=== PATIENT | male | born 1970 | race American Indian/Alaskan Native ===

== ENCOUNTER 2019-12-07 10:10 | Inpatient (IN) | payer BC, OTHER ==
[2019-12-07] MEDS ORDERED: Sodium Chloride 0.9% 10 ML Syringe FLUSH PRN (10:31)
[2019-12-07] MEDS ORDERED: Sodium Chloride 0.9% 2.5 ML Syringe FLUSH PRN (10:31)
[2019-12-07] MEDS ORDERED: Sodium Chloride 0.9% 10 ML SDV IV PRN (10:31)
--- NOTE | 2019-12-07 10:46 | CT ---
INDICATION: Right-sided facial droop. TECHNIQUE: CT head without contrast. COMPARISON: None. FINDINGS: CSF spaces: Within normal limits for age. Brain parenchyma and extra-axial spaces: A 9 mm lacunar infarct is in the right basal ganglia, this has a chronic appearance. No other signs of ischemia. No hemorrhage or mass effect. Chang-white matter distinction is intact. Skull base and calvarium: The visualized paranasal sinuses and mastoid air cells demonstrate no acute or significant findings. The visualized orbits are grossly unremarkable. No skull fractures. IMPRESSION: Solitary chronic appearing lacunar infarct in the right basal ganglia. No convincing evidence for acute ischemia or other significant finding. Please note that all CT scans at this facility use dose modulation, iterative reconstruction, and/or weight-based dosing when appropriate to reduce radiation dose to as low as reasonably achievable. Dictated by Alfredo Sutton MD @ Dec 07 2019 10:41AM Signed by Dr. Alfredo Sutton @ Dec 07 2019 10:45AM
--- NOTE | 2019-12-07 11:17 | CR ---
Chest: Frontal view of the chest is obtained utilizing portable technique. Heart size and mediastinum are normal. Scoliosis is noted within the spine. Lungs are clear with no acute parenchymal change. Impression: 1. Findings as noted above. 2. Nothing acute is appreciated on portable chest x-ray. Diagnostic code #1 This report was dictated in [place] Standard Time
[2019-12-07 11:41] LABS: BLOOD UREA NITROGEN,BUN 5 mg/dL (7.0-18.0); CARBON DIOXIDE,CO2 25.9 mmol/L (21.0-32.0); CHLORIDE,CL 102 mmol/L (98-107); GLUCOSE RANDOM 129 mg/dL (74-106); POTASSIUM,K 3.9 mmol/L (3.5-5.1); SODIUM,NA 138 mmol/L (136-148)
--- NOTE | 2019-12-07 12:49 | PCM.HP.2 ---
<HaneyLluviakeiry - Last Filed: 12/07/19 13:03> H&P History of Present Illness - General Admit Problem/Dx: Admission Diagnosis/Problem Admission Diagnosis/Problem Stroke of unknown etiology Source of Information: Patient History Limitations: Reports: No Limitations - History of Present Illness Initial Comments - Free Text/Narative: Patient is a 49-year-old male presenting with strokelike symptoms. Onset of symptoms was 8:30 AM yesterday. Patient states he had acute onset of right- sided facial weakness and difficulty speaking. Patient states his tongue feels swollen and fat. In addition, site patient states his right side of his face feels numb. Patient has no difficulty closing his eyes. Patient denies any headache. Patient denies any other neurologic complaints. Patient has no prior history of stroke. She states he did not come in yesterday because he does not like doctors. Pmhx: None Pshx: None Family Hx: noncontributory Smoking history? Yes Etoh use? none Drug use? none In addition to that documented in the HPI above, the additional ROS was obtained : Constitutional: Denies fevers or chills Eyes: Denies vision changes ENMT: Denies sore throat CV: Denies chest pain Resp: Denies SOB GI: Denies vomiting or diarrhea : Denies painful urination MSK: Denies recent trauma Skin: Denies new rashes Neuro: Denies new numbness or tingling or weakness Endocrine: Denies unexpected weight loss Heme: Denies bleeding disorders I have reviewed the triage vital signs Const: Well nourished, well developed, appears stated age Eyes: PERRL, no conjunctival injection HENT: NCAT, Neck supple without meningismus CV: RRR, Warm, well-perfused extremities RESP: CTAB, Unlabored respiratory effort GI: soft, non-tender, non-distended, no masses MSK: No gross deformities appreciated Skin: Warm, dry. No rashes Neuro: Patient is awake and alert and oriented x3. Patient demonstrates right- sided facial droop with forehead sparing. Patient is able to close both eyes. Patient does demonstrate some dysarthric speech. Patient's upper and lower extremities are both 5 out of 5 in strength. Patient walks with normal gait. Patient has normal [id number] testing. Psych: Appropriate mood and affect Assessment and plan: Patient is a 49-year-old male with strokelike symptoms. Differential diagnosis considered was ischemic stroke versus intracranial hemorrhage versus Teague's palsy. However given the findings of his neurologic exam and negative brain CT it seems like ischemic stroke is most likely. Patient is not a TPA candidate given his delayed presentation to the emergency room. Patient is not a candidate for neuro intervention either as he does not have any large vessel occlusion that would necessitate intervention. Patient will require admission to the hospital for further stroke work-up including MRI/MRA of the head and neck. Discussed with Dr. Wheeler who agreed to accept the patient for admission. - Related Data Allergies/Adverse Reactions: Allergies Allergy/AdvReac Type Severity Reaction Status Date / Time No Known Allergies Allergy Verified 12/07/19 10:19 Home Medications: Home Meds . [No Known Home Meds] 12/07/19 [History] H&P Review of Systems - Review of Systems: Review Of Systems: See Below Exam - Exam Exam: See Below - Vital Signs Vital Signs: Last Vital Signs Temp 35.7 C L 12/07/19 10:17 Pulse 82 12/07/19 11:26 Resp 16 12/07/19 11:26 BP 146/98 H 12/07/19 11:26 Pulse Ox 96 12/07/19 11:26 - Patient Data Lab Results Last 24 hrs: Laboratory Results - last 24 hr 12/07/19 12/07/19 12/07/19 Range/Units 10:45 10:45 10:45 WBC 9.54 (4.0-11.0) K/uL RBC 5.19 (4.50-5.90) M/uL Hgb 18.2 H (13.0-17.0) g/dL Hct 50.7 H (38.0-50.0) % MCV 97.7 (80.0-98.0) fL MCH 35.1 H (27.0-32.0) pg MCHC 35.9 (31.0-37.0) g/dL RDW Std Deviation 47.2 (28.0-62.0) fl RDW Coeff of Alfred 13 (11.0-15.0) % Plt Count 232 (150-400) K/uL MPV 10.80 (7.40-12.00) fL Neut % (Auto) 69.0 (48.0-80.0) % Lymph % (Auto) 21.0 (16.0-40.0) % [place] % (Auto) 6.5 (0.0-15.0) % Eos % (Auto) 3.0 (0.0-7.0) % Baso % (Auto) 0.5 (0.0-1.5) % Neut # (Auto) 6.6 H (1.4-5.7) K/uL Lymph # (Auto) 2.0 (0.6-2.4) K/uL [place] # (Auto) 0.6 (0.0-0.8) K/uL Eos # (Auto) 0.3 (0.0-0.7) K/uL Baso # (Auto) 0.1 (0.0-0.1) K/uL Nucleated RBC % 0.0 /100WBC Nucleated RBCs # 0 K/uL INR 1.12 APTT 28.1 (18.6-31.3) SEC Sodium 138 (136-148) mmol/L Potassium 3.9 (3.5-5.1) mmol/L Chloride 102 (98-107) mmol/L Carbon Dioxide 25.9 (21.0-32.0) mmol/L BUN 5 L (7.0-18.0) mg/dL Creatinine 1.0 (0.8-1.3) mg/dL Est Cr Clr Drug Dosing 88.35 mL/min Estimated GFR (MDRD) > 60.0 ml/min Glucose 129 H (74-106) mg/dL Calcium 9.0 (8.5-10.1) mg/dL Total Bilirubin 1.1 H (0.2-1.0) mg/dL AST 21 (15-37) IU/L ALT 20 (14-63) IU/L Alkaline Phosphatase 72 (46-116) U/L Troponin I < 0.050 (0.000-0.056) ng/mL Total Protein 7.4 (6.4-8.2) g/dL Albumin 3.4 (3.4-5.0) g/dL Globulin 4.0 (2.6-4.0) g/dL Albumin/Globulin Ratio 0.9 (0.9-1.6) TSH 3rd Generation 1.61 (0.36-3.74) uIU/mL Result Diagrams: 12/07/19 10:45 12/07/19 10:45 Sepsis Event Note - Focused Exam Vital Signs: Vital Signs Temp Pulse Resp BP Pulse Ox 12/07/19 11:26 82 16 146/98 H 96 12/07/19 10:30 102 H 18 164/103 H 96 12/07/19 10:17 35.7 C L 126 H 20 184/107 H 96 Date Exam was Performed: 12/07/19 Time Exam was Performed: 13:03 *Q Meaningful Use (ADM) - VTE *Q VTE Criteria *Q: ER note. Please see internal medicine note for VTE considerations. Problem List Initiated/Reviewed/Updated: Yes Orders Last 24hrs: Active Orders 24 hr Category Date Time Status Admission Status [Patient Status] [ADT] Stat ADT 12/07/19 12:37 Active Assess Neurological Status [RC] ASDIRECTED Care 12/07/19 10:31 Active Bedrest [RC] ASDIRECTED Care 12/07/19 10:31 Active Blood Glucose Check, Bedside [RC] ONETIME Care 12/07/19 10:31 Active Cardiac Monitoring [RC] . DIRECTED Care 12/07/19 10:31 Active EKG Documentation Completion [RC] STAT Care 12/07/19 10:31 Active Height and Weight [RC] UPON Care 12/07/19 10:31 Active Initiate Acute Stroke Protocol [RC] STAT Care 12/07/19 10:31 Active NIH Stroke Scale [RC] ASDIRECTED Care 12/07/19 10:31 Active Nursing Bedside Swallow Screen [RC] ASDIRECTED Care 12/07/19 10:31 Active Oxygen Therapy [RC] ASDIRECTED Care 12/07/19 10:31 Active Stroke Education, General [RC] Click to Edit Care 12/07/19 10:31 Active Vital Signs [RC] Q15M Care 12/07/19 10:31 Active UA RFX GEORGE AND CULT IF INDIC [URIN] Stat Lab 12/07/19 10:31 Ordered Sodium Chloride 0.9% [Normal Saline] Med 12/07/19 10:31 Active 10 ml IV ASDIRECTED PRN Sodium Chloride 0.9% [Saline Flush] Med 12/07/19 10:31 Active 10 ml FLUSH ASDIRECTED PRN Sodium Chloride 0.9% [Saline Flush] Med 12/07/19 10:31 Active 2.5 ml FLUSH ASDIRECTED PRN Peripheral IV Insertion Adult [OM.PC] Stat Oth 12/07/19 10:31 Ordered Peripheral IV Insertion Adult [OM.PC] Stat Ot 12/07/19 10:31 Ordered Medication Orders Sodium Chloride (Saline Flush) 10 ml FLUSH ASDIRECTED PRN PRN Reason: Keep Vein Open Sodium Chloride (Saline Flush) 2.5 ml FLUSH ASDIRECTED PRN PRN Reason: Keep Vein Open Sodium Chloride (Normal Saline) 10 ml IV ASDIRECTED PRN PRN Reason: IV Use <Tatum De La Cruz M - Last Filed: 12/07/19 13:41> H&P History of Present Illness - General Date of Service: 12/07/19 Admit Problem/Dx: Admission Diagnosis/Problem Admission Diagnosis/Problem Stroke of unknown etiology Source of Information: Patient History Limitations: Reports: No Limitations - History of Present Illness Initial Comments - Free Text/Narative: ED NOTE INADVERTENTLY ADDED, DISREGARD. SEE NEW H/P Past Medical History - Past Health History Medical/Surgical History: Denies Medical/Surgical History - Past Surgical History Musculoskeletal Surgical History: Reports: Other (See Below) Other Musculoskeletal Surgeries/Procedures:: Back Surgery Social & Family History - Family History Family Medical History: Unobtainable - Tobacco Use Smoking Status *Q: Current Every Day Smoker Years of Tobacco use: 30 Packs/Tins Daily: 3 - Alcohol Use Days Per Week of Alcohol Use: 7 Number of Drinks Per Day: 12 Total Drinks Per Week: 84 - Recreational Drug Use Recreational Drug Use: No Exam - Vital Signs Vital Signs: Last Vital Signs Temp 96.3 F L 12/07/19 10:17 Pulse 82 12/07/19 11:26 Resp 16 12/07/19 11:26 BP 146/98 H 12/07/19 11:26 Pulse Ox 96 12/07/19 11:26 Weight: 75.8 kg - Patient Data Lab Results Last 24 hrs: Laboratory Results - last 24 hr 12/07/19 12/07/19 12/07/19 Range/Units 10:45 10:45 10:45 WBC 9.54 (4.0-11.0) K/uL RBC 5.19 (4.50-5.90) M/uL Hgb 18.2 H (13.0-17.0) g/dL Hct 50.7 H (38.0-50.0) % MCV 97.7 (80.0-98.0) fL MCH 35.1 H (27.0-32.0) pg MCHC 35.9 (31.0-37.0) g/dL RDW Std Deviation 47.2 (28.0-62.0) fl RDW Coeff of Alfred 13 (11.0-15.0) % Plt Count 232 (150-400) K/uL MPV 10.80 (7.40-12.00) fL Neut % (Auto) 69.0 (48.0-80.0) % Lymph % (Auto) 21.0 (16.0-40.0) % [place] % (Auto) 6.5 (0.0-15.0) % Eos % (Auto) 3.0 (0.0-7.0) % Baso % (Auto) 0.5 (0.0-1.5) % Neut # (Auto) 6.6 H (1.4-5.7) K/uL Lymph # (Auto) 2.0 (0.6-2.4) K/uL [place] # (Auto) 0.6 (0.0-0.8) K/uL Eos # (Auto) 0.3 (0.0-0.7) K/uL Baso # (Auto) 0.1 (0.0-0.1) K/uL Nucleated RBC % 0.0 /100WBC Nucleated RBCs # 0 K/uL INR 1.12 APTT 28.1 (18.6-31.3) SEC Sodium 138 (136-148) mmol/L Potassium 3.9 (3.5-5.1) mmol/L Chloride 102 (98-107) mmol/L Carbon Dioxide 25.9 (21.0-32.0) mmol/L BUN 5 L (7.0-18.0) mg/dL Creatinine 1.0 (0.8-1.3) mg/dL Est Cr Clr Drug Dosing 88.35 mL/min Estimated GFR (MDRD) > 60.0 ml/min Glucose 129 H (74-106) mg/dL Calcium 9.0 (8.5-10.1) mg/dL Total Bilirubin 1.1 H (0.2-1.0) mg/dL AST 21 (15-37) IU/L ALT 20 (14-63) IU/L Alkaline Phosphatase 72 (46-116) U/L Troponin I < 0.050 (0.000-0.056) ng/mL Total Protein 7.4 (6.4-8.2) g/dL Albumin 3.4 (3.4-5.0) g/dL Globulin 4.0 (2.6-4.0) g/dL Albumin/Globulin Ratio 0.9 (0.9-1.6) TSH 3rd Generation 1.61 (0.36-3.74) uIU/mL Result Diagrams: 12/07/19 10:45 12/07/19 10:45 Sepsis Event Note - Evaluation Sepsis Screening Result: No Definite Risk - Focused Exam Vital Signs: Vital Signs Temp Pulse Resp BP Pulse Ox 12/07/19 11:26 82 16 146/98 H 96 12/07/19 10:30 102 H 18 164/103 H 96 12/07/19 10:17 96.3 F L 126 H 20 184/107 H 96 Date Exam was Performed: 12/07/19 Time Exam was Performed: 13:41 Orders Last 24hrs: Active Orders 24 hr Category Date Time Status Admission Status [Patient Status] [ADT] Stat ADT 12/07/19 12:37 Active Assess Neurological Status [RC] ASDIRECTED Care 12/07/19 10:31 Active Bedrest [RC] ASDIRECTED Care 12/07/19 10:31 Active Blood Glucose Check, Bedside [RC] ONETIME Care 12/07/19 10:31 Active Cardiac Monitoring [RC] . DIRECTED Care 12/07/19 10:31 Active EKG Documentation Completion [RC] STAT Care 12/07/19 10:31 Active Height and Weight [RC] UPON Care 12/07/19 10:31 Active Initiate Acute Stroke Protocol [RC] STAT Care 12/07/19 10:31 Active NIH Stroke Scale [RC] ASDIRECTED Care 12/07/19 10:31 Active Nursing Bedside Swallow Screen [RC] ASDIRECTED Care 12/07/19 10:31 Active Oxygen Therapy [RC] ASDIRECTED Care 12/07/19 10:31 Active Stroke Education, General [RC] Click to Edit Care 12/07/19 10:31 Active Vital Signs [RC] Q15M Care 12/07/19 10:31 Active UA RFX GEORGE AND CULT IF INDIC [URIN] Stat Lab 12/07/19 10:31 Ordered Sodium Chloride 0.9% [Normal Saline] Med 12/07/19 10:31 Active 10 ml IV ASDIRECTED PRN Sodium Chloride 0.9% [Saline Flush] Med 12/07/19 10:31 Active 10 ml FLUSH ASDIRECTED PRN Sodium Chloride 0.9% [Saline Flush] Med 12/07/19 10:31 Active 2.5 ml FLUSH ASDIRECTED PRN Peripheral IV Insertion Adult [OM.PC] Stat Oth 12/07/19 10:31 Ordered Peripheral IV Insertion Adult [OM.PC] Stat Oth 12/07/19 10:31 Ordered Medication Orders Sodium Chloride (Saline Flush) 10 ml FLUSH ASDIRECTED PRN PRN Reason: Keep Vein Open Sodium Chloride (Saline Flush) 2.5 ml FLUSH ASDIRECTED PRN PRN Reason: Keep Vein Open Sodium Chloride (Normal Saline) 10 ml IV ASDIRECTED PRN PRN Reason: IV Use
[2019-12-07] MEDS ORDERED: Acetaminophen 325 MG Tab PO PRN (13:26)
[2019-12-07] MEDS ORDERED: Albuterol 0.083% 2.5 MG/3 ML Neb Soln NEB PRN (13:26)
[2019-12-07] MEDS ORDERED: Ondansetron 4 MG/2 ML SDV IVPUSH PRN (13:26)
[2019-12-07] MEDS ORDERED: Enoxaparin 40 MG/0.4 ML Syringe SUBCUT SCH (13:30)
[2019-12-07] MEDS ORDERED: Aspirin 325 MG Tab.EC PO ONE (13:31)
[2019-12-07] MEDS ORDERED: LORazepam 1 MG Tab PO PRN (13:32)
[2019-12-07] MEDS ORDERED: LORazepam 2 MG/ML SDV IVPUSH PRN (13:32)
--- NOTE | 2019-12-07 13:38 | EDM.PDOC ---
ED [facility] GENERAL MEDICAL PROBLEM - General Chief Complaint: Neuro Symptoms/Deficits Stated Complaint: STROKE CODE Time Seen by Provider: 12/07/19 11:00 Source of Information: Reports: Patient History Limitations: Reports: No Limitations - History of Present Illness INITIAL COMMENTS - FREE TEXT/NARRATIVE: Patient is a 49-year-old male presenting with strokelike symptoms. Onset of symptoms was 8:30 AM yesterday. Patient states he had acute onset of right- sided facial weakness and difficulty speaking. Patient states his tongue feels swollen and fat. In addition, site patient states his right side of his face feels numb. Patient has no difficulty closing his eyes. Patient denies any headache. Patient denies any other neurologic complaints. Patient has no prior history of stroke. She states he did not come in yesterday because he does not like doctors. Pmhx: None Pshx: None Family Hx: noncontributory Smoking history? Yes Etoh use? none Drug use? none In addition to that documented in the HPI above, the additional ROS was obtained : Constitutional: Denies fevers or chills Eyes: Denies vision changes ENMT: Denies sore throat CV: Denies chest pain Resp: Denies SOB GI: Denies vomiting or diarrhea : Denies painful urination MSK: Denies recent trauma Skin: Denies new rashes Neuro: Denies new numbness or tingling or weakness Endocrine: Denies unexpected weight loss Heme: Denies bleeding disorders I have reviewed the triage vital signs Const: Well nourished, well developed, appears stated age Eyes: PERRL, no conjunctival injection HENT: NCAT, Neck supple without meningismus CV: RRR, Warm, well-perfused extremities RESP: CTAB, Unlabored respiratory effort GI: soft, non-tender, non-distended, no masses MSK: No gross deformities appreciated Skin: Warm, dry. No rashes Neuro: Patient is awake and alert and oriented x3. Patient demonstrates right- sided facial droop with forehead sparing. Patient is able to close both eyes. Patient does demonstrate some dysarthric speech. Patient's upper and lower extremities are both 5 out of 5 in strength. Patient walks with normal gait. Patient has normal hlhllj-smey-wadmck testing. Psych: Appropriate mood and affect Assessment and plan: Patient is a 49-year-old male with strokelike symptoms. Differential diagnosis considered was ischemic stroke versus intracranial hemorrhage versus Teague's palsy. However given the findings of his neurologic exam and negative brain CT it seems like ischemic stroke is most likely. Patient is not a TPA candidate given his delayed presentation to the emergency room. Patient is not a candidate for neuro intervention either as he does not have any large vessel occlusion that would necessitate intervention. Patient will require admission to the hospital for further stroke work-up including MRI/MRA of the head and neck. Discussed with Dr. Wheeler who agreed to accept the patient for admission. - Related Data Allergies Allergy/AdvReac Type Severity Reaction Status Date / Time No Known Allergies Allergy Verified 12/07/19 10:19 Home Meds: Home Meds . [No Known Home Meds] 12/07/19 [History] Past Medical History - Past Health History Medical/Surgical History: Denies Medical/Surgical History - Past Surgical History Musculoskeletal Surgical History: Reports: Other (See Below) Other Musculoskeletal Surgeries/Procedures:: Back Surgery Social & Family History - Family History Family Medical History: Unobtainable - Tobacco Use Smoking Status *Q: Current Every Day Smoker Years of Tobacco use: 30 Packs/Tins Daily: 3 - Alcohol Use Days Per Week of Alcohol Use: 7 Number of Drinks Per Day: 12 Total Drinks Per Week: 84 - Recreational Drug Use Recreational Drug Use: No ED ROS GENERAL - Review of Systems Review Of Systems: See Below ED EXAM, NEURO - Physical Exam Exam: See Below *Q Meaningful Use (ADM) - VTE *Q VTE Criteria *Q: ER note Course - Vital Signs Last Recorded V/S: Last Vital Signs Temp 35.7 C L 12/07/19 10:17 Pulse 82 12/07/19 11:26 Resp 16 12/07/19 11:26 BP 146/98 H 12/07/19 11:26 Pulse Ox 96 12/07/19 11:26 - Orders/Labs/Meds Orders: Active Orders 24 hr Category Date Time Status Assess Neurological Status [RC] ASDIRECTED Care 12/07/19 10:31 Active Cardiac Monitoring [RC] . DIRECTED Care 12/07/19 10:31 Inactive EKG Documentation Completion [RC] STAT Care 12/07/19 10:31 Active Initiate Acute Stroke Protocol [RC] STAT Care 12/07/19 10:31 Active NIH Stroke Scale [RC] Q4H Care 12/07/19 13:30 Active Nursing Bedside Swallow Screen [RC] ASDIRECTED Care 12/07/19 10:31 Active Oxygen Therapy [RC] ASDIRECTED Care 12/07/19 10:31 Inactive Stroke Education, General [RC] Click to Edit Care 12/07/19 10:31 Active UA RFX GEORGE AND CULT IF INDIC [URIN] Stat Lab 12/07/19 10:31 Ordered Sodium Chloride 0.9% [Normal Saline] Med 12/07/19 10:31 Active 10 ml IV ASDIRECTED PRN Sodium Chloride 0.9% [Saline Flush] Med 12/07/19 10:31 Active 10 ml FLUSH ASDIRECTED PRN Sodium Chloride 0.9% [Saline Flush] Med 12/07/19 10:31 Active 2.5 ml FLUSH ASDIRECTED PRN Peripheral IV Insertion Adult [OM.PC] Stat Oth 12/07/19 10:31 Ordered Medication Orders Acetaminophen (Tylenol) 650 mg PO Q4H PRN PRN Reason: Pain (mild 1-3) Albuterol (Proventil Neb Soln) 2.5 mg NEB Q2H PRN PRN Reason: Shortness Of Breath/wheezing Aspirin (Aspirin) 81 mg PO DAILY [facility] Atorvastatin Calcium (Lipitor) 80 mg PO BEDTIME [facility] Enoxaparin Sodium (Lovenox) 40 mg SUBCUT Q24H [facility]IS Folic Acid (Folic Acid) 1 mg PO BEDTIME [facility] Lorazepam (Ativan) 0 mg PO Q4H PRN; Protocol PRN Reason: CIWAA Lorazepam (Ativan) 0 mg IVPUSH Q4H PRN; Protocol PRN Reason: CIWAA Ondansetron HCl (Zofran) 4 mg IVPUSH Q4H PRN PRN Reason: Nausea Sodium Chloride (Saline Flush) 10 ml FLUSH ASDIRECTED PRN PRN Reason: Keep Vein Open Sodium Chloride (Saline Flush) 2.5 ml FLUSH ASDIRECTED PRN PRN Reason: Keep Vein Open Sodium Chloride (Normal Saline) 10 ml IV ASDIRECTED PRN PRN Reason: IV Use Thiamine HCl (Vitamin B-1) 100 mg PO BEDTIME [facility] Labs: Laboratory Tests 12/07/19 12/07/19 12/07/19 Range/Units 10:45 10:45 10:45 WBC 9.54 (4.0-11.0) K/uL RBC 5.19 (4.50-5.90) M/uL Hgb 18.2 H (13.0-17.0) g/dL Hct 50.7 H (38.0-50.0) % MCV 97.7 (80.0-98.0) fL MCH 35.1 H (27.0-32.0) pg MCHC 35.9 (31.0-37.0) g/dL RDW Std Deviation 47.2 (28.0-62.0) fl RDW Coeff of Alfred 13 (11.0-15.0) % Plt Count 232 (150-400) K/uL MPV 10.80 (7.40-12.00) fL Neut % (Auto) 69.0 (48.0-80.0) % Lymph % (Auto) 21.0 (16.0-40.0) % [place] % (Auto) 6.5 (0.0-15.0) % Eos % (Auto) 3.0 (0.0-7.0) % Baso % (Auto) 0.5 (0.0-1.5) % Neut # (Auto) 6.6 H (1.4-5.7) K/uL Lymph # (Auto) 2.0 (0.6-2.4) K/uL [place] # (Auto) 0.6 (0.0-0.8) K/uL Eos # (Auto) 0.3 (0.0-0.7) K/uL Baso # (Auto) 0.1 (0.0-0.1) K/uL Nucleated RBC % 0.0 /100WBC Nucleated RBCs # 0 K/uL INR 1.12 APTT 28.1 (18.6-31.3) SEC Sodium 138 (136-148) mmol/L Potassium 3.9 (3.5-5.1) mmol/L Chloride 102 (98-107) mmol/L Carbon Dioxide 25.9 (21.0-32.0) mmol/L BUN 5 L (7.0-18.0) mg/dL Creatinine 1.0 (0.8-1.3) mg/dL Est Cr Clr Drug Dosing 88.35 mL/min Estimated GFR (MDRD) > 60.0 ml/min Glucose 129 H (74-106) mg/dL Calcium 9.0 (8.5-10.1) mg/dL Total Bilirubin 1.1 H (0.2-1.0) mg/dL AST 21 (15-37) IU/L ALT 20 (14-63) IU/L Alkaline Phosphatase 72 (46-116) U/L Troponin I < 0.050 (0.000-0.056) ng/mL Total Protein 7.4 (6.4-8.2) g/dL Albumin 3.4 (3.4-5.0) g/dL Globulin 4.0 (2.6-4.0) g/dL Albumin/Globulin Ratio 0.9 (0.9-1.6) TSH 3rd Generation 1.61 (0.36-3.74) uIU/mL Meds: Medications Generic Name Dose Route Start Last Admin Trade Name Freq PRN Reason Stop Dose Admin Acetaminophen 650 mg 12/07/19 13:26 Tylenol PO Q4H PRN Pain (mild 1-3) Albuterol 2.5 mg 12/07/19 13:26 Proventil Neb Soln NEB Q2H PRN Shortness Of Breath/wheezing Aspirin 81 mg 12/08/19 09:00 Aspirin PO DAILY [facility] Atorvastatin Calcium 80 mg 12/07/19 21:00 Lipitor PO BEDTIME [facility] Enoxaparin Sodium 40 mg 12/07/19 13:30 Lovenox SUBCUT Q24H [facility] Folic Acid 1 mg 12/07/19 21:00 Folic Acid PO BEDTIME [facility] Lorazepam 0 mg 12/07/19 13:32 Ativan PO Q4H PRN CIWAA Protocol Lorazepam 0 mg 12/07/19 13:32 Ativan IVPUSH Q4H PRN CIWAA Protocol Ondansetron HCl 4 mg 12/07/19 13:26 Zofran IVPUSH Q4H PRN Nausea Sodium Chloride 10 ml 12/07/19 10:31 Saline Flush FLUSH ASDIRECTED PRN Keep Vein Open Sodium Chloride 2.5 ml 12/07/19 10:31 Saline Flush FLUSH ASDIRECTED PRN Keep Vein Open Sodium Chloride 10 ml 12/07/19 10:31 Normal Saline IV ASDIRECTED PRN IV Use Thiamine HCl 100 mg 12/07/19 21:00 Vitamin B-1 PO BEDTIME [facility] Discontinued Medications Generic Name Dose Route Start Last Admin Trade Name Freq PRN Reason Stop Dose Admin Aspirin 325 mg 12/07/19 13:31 Ecotrin PO 12/07/19 13:32 ONETIME ONE Departure - Departure Time of Disposition: 12:00 Disposition: Admitted As Inpatient 68 Clinical Impression: Cerebrovascular accident (CVA) - Discharge Information Sepsis Event Note - Evaluation Sepsis Screening Result: No Definite Risk - Focused Exam Vital Signs: Vital Signs Temp Pulse Resp BP Pulse Ox 12/07/19 11:26 82 16 146/98 H 96 12/07/19 10:30 102 H 18 164/103 H 96 12/07/19 10:17 35.7 C L 126 H 20 184/107 H 96 Date Exam was Performed: 12/07/19 Time Exam was Performed: 13:39
--- NOTE | 2019-12-07 13:49 | PCM.HP.2 ---
Addendum entered and electronically signed by Tatum De La Cruz NP 12/07/19 14:28 : He reports he saw chiropractor 1 week ago and had cervical adjustment at that time. Original Note: H&P History of Present Illness - General Date of Service: 12/07/19 Admit Problem/Dx: Admission Diagnosis/Problem Admission Diagnosis/Problem CVA Source of Information: Patient History Limitations: Reports: No Limitations - History of Present Illness Initial Comments - Free Text/Narative: This 49 year old male with pmh of CVA 6-7 years ago, tobacco use, alcohol dependence and untreated HTN and dyslipidemia presented to the ED with complaints of R sided facial numbness, slurred speech and facial droop. He reports this started yesterday morning around 0830 am. He reports he was at work , suddenly had a velez of flushing, lightheadedness and dizziness and then he noticed the slurred speech and facial droop. He didn't come in right away as he thought it would go away. This morning when it wasn't gone he was concerned so he came in. Prior to yesterday he was feeling normal. No recent fevers or chills. No chest pain or palpitations. No shortness of breath cough or URI symptoms. He denies abdominal pain, urinary concerns, no bowel issues. He denies black or bloody BMs. He reports history of 3 small strokes 6-7 years ago , denies work up for this. He reports he passed out after getting out of bed then went to the hospital and was told he had had a stroke. He denies starting medications at that time. He reports hypertension and high cholesterol, but denies taking any medication for this. he denies known CAD. No DM history and no thyroid concerns. He reports family history of CVA of his father and mother in their 50s. No known clotting disorders to his knowledge. He reports he smokes 3 ppd cigarettes, drinks 12-15 beers daily. Denies seizures. No withdrawal symptoms when he doesn't drink. He denies recreational drug use. In the ED hgb 18.2, hct 50.7, BMP WNL. Bili 1.1. Glucose 129. TSH 1.61, troponin negative. EKG SR with to afib noted, HR on arrival was 125 which settled to 80s. BP on arrival 180 SBP then improved to 140-[address] revealed chronic lacunar infarct in the R basal ganglia, CXR negative. He will be admitted for suspected acute CVA. - Related Data Allergies/Adverse Reactions: Allergies Allergy/AdvReac Type Severity Reaction Status Date / Time No Known Allergies Allergy Verified 12/07/19 10:19 Home Medications: Home Meds . [No Known Home Meds] 12/07/19 [History] Past Medical History - Past Health History Medical/Surgical History: Denies Medical/Surgical History Cardiovascular History: Reports: High Cholesterol, Hypertension. Denies: Afib, Blood Clots/VTE/DVT, CAD, [place] Respiratory History: Reports: None. Denies: Asthma, COPD Gastrointestinal History: Reports: None Neurological History: Reports: CVA (6-7 years ago) Psychiatric History: Reports: Addiction Endocrine/Metabolic History: Reports: None. Denies: Diabetes, Type II, Obesity/ BMI 30+ Immunologic History: Reports: None - Past Surgical History Musculoskeletal Surgical History: Reports: Other (See Below) Other Musculoskeletal Surgeries/Procedures:: Back Surgery Social & Family History - Family History Family Medical History: Unobtainable - Tobacco Use Smoking Status *Q: Current Every Day Smoker Years of Tobacco use: 30 Packs/Tins Daily: 3 - Caffeine Use Caffeine Use: Reports: Soda - Alcohol Use Days Per Week of Alcohol Use: 7 Number of Drinks Per Day: 12 Total Drinks Per Week: 84 Alcohol Use Frequency: Daily - Recreational Drug Use Recreational Drug Use: No - Living Situation & Occupation Occupation: Employed ([employer]) H&P Review of Systems - Review of Systems: Review Of Systems: See Below General: Reports: No Symptoms. Denies: Fever, Chills, Malaise, Weakness HEENT: Reports: Vertigo (small episode yesterday, none since). Denies: Eye Pain , Headaches, Sinus Congestion, Sore Throat Pulmonary: Denies: Shortness of Breath, Wheezing Cardiovascular: Reports: Lightheadedness (yesterday, but has since stopped.). Denies: Chest Pain, Edema Gastrointestinal: Reports: No Symptoms. Denies: Abdominal Pain, Black Stool, Bloody Stool, Nausea, Vomiting Genitourinary: Reports: No Symptoms. Denies: Dysuria, Frequency, Burning Musculoskeletal: Reports: No Symptoms. Denies: Neck Pain, Shoulder Pain Skin: Reports: No Symptoms Psychiatric: Reports: No Symptoms Neurological: Reports: Trouble Speaking, Change in Speech (slurred), Other (R facial numbness and facial droop) Hematologic/Lymphatic: Reports: No Symptoms Immunologic: Reports: No Symptoms Exam - Exam Exam: See Below - Vital Signs Vital Signs: Last Vital Signs Temp 96.3 F L 12/07/19 10:17 Pulse 82 12/07/19 11:26 Resp 16 12/07/19 11:26 BP 146/98 H 12/07/19 11:26 Pulse Ox 96 12/07/19 11:26 Weight: 75.8 kg - Exam Quality Assessment: DVT Prophylaxis. No: Supplemental Oxygen General: Alert, Oriented, Cooperative HEENT: Conjunctiva Clear, Mucosa Moist & [place], Posterior Pharynx Clear Neck: Supple, Trachea Midline, Full Range of Motion. No: Lymphadenopathy Lungs: Clear to Auscultation, Normal Respiratory Effort Cardiovascular: Regular Rate, Regular Rhythm, Normal S1, Normal S2. No: Irregular Rhythm, Systolic Murmur GI/Abdominal Exam: Normal Bowel Sounds, Soft, Non-Tender Back Exam: Normal Inspection, Full Range of Motion Extremities: Normal Inspection, Normal Range of Motion, Non-Tender, No Pedal Edema Neurological: Strength Equal Bilateral, Normal Gait. No: Normal Speech ( slurred speech) Neuro Extensive - Mental Status: Alert, Oriented x3, Normal Mood/Affect Neuro Extensive - Motor, Sensory, Reflexes: Facial Palsy w Forehead, Other ( sided) Psychiatric: Alert, Normal Affect, Normal Mood - Patient Data Lab Results Last 24 hrs: Laboratory Results - last 24 hr 12/07/19 12/07/19 12/07/19 Range/Units 10:45 10:45 10:45 WBC 9.54 (4.0-11.0) K/uL RBC 5.19 (4.50-5.90) M/uL Hgb 18.2 H (13.0-17.0) g/dL Hct 50.7 H (38.0-50.0) % MCV 97.7 (80.0-98.0) fL MCH 35.1 H (27.0-32.0) pg MCHC 35.9 (31.0-37.0) g/dL RDW Std Deviation 47.2 (28.0-62.0) fl RDW Coeff of Alfred 13 (11.0-15.0) % Plt Count 232 (150-400) K/uL MPV 10.80 (7.40-12.00) fL Neut % (Auto) 69.0 (48.0-80.0) % Lymph % (Auto) 21.0 (16.0-40.0) % [place] % (Auto) 6.5 (0.0-15.0) % Eos % (Auto) 3.0 (0.0-7.0) % Baso % (Auto) 0.5 (0.0-1.5) % Neut # (Auto) 6.6 H (1.4-5.7) K/uL Lymph # (Auto) 2.0 (0.6-2.4) K/uL [place] # (Auto) 0.6 (0.0-0.8) K/uL Eos # (Auto) 0.3 (0.0-0.7) K/uL Baso # (Auto) 0.1 (0.0-0.1) K/uL Nucleated RBC % 0.0 /100WBC Nucleated RBCs # 0 K/uL INR 1.12 APTT 28.1 (18.6-31.3) SEC Sodium 138 (136-148) mmol/L Potassium 3.9 (3.5-5.1) mmol/L Chloride 102 (98-107) mmol/L Carbon Dioxide 25.9 (21.0-32.0) mmol/L BUN 5 L (7.0-18.0) mg/dL Creatinine 1.0 (0.8-1.3) mg/dL Est Cr Clr Drug Dosing 88.35 mL/min Estimated GFR (MDRD) > 60.0 ml/min Glucose 129 H (74-106) mg/dL Calcium 9.0 (8.5-10.1) mg/dL Total Bilirubin 1.1 H (0.2-1.0) mg/dL AST 21 (15-37) IU/L ALT 20 (14-63) IU/L Alkaline Phosphatase 72 (46-116) U/L Troponin I < 0.050 (0.000-0.056) ng/mL Total Protein 7.4 (6.4-8.2) g/dL Albumin 3.4 (3.4-5.0) g/dL Globulin 4.0 (2.6-4.0) g/dL Albumin/Globulin Ratio 0.9 (0.9-1.6) TSH 3rd Generation 1.61 (0.36-3.74) uIU/mL Result Diagrams: 12/07/19 10:45 12/07/19 10:45 Sepsis Event Note - Evaluation Sepsis Screening Result: No Definite Risk - Focused Exam Vital Signs: Vital Signs Temp Pulse Resp BP Pulse Ox 12/07/19 11:26 82 16 146/98 H 96 12/07/19 10:30 102 H 18 164/103 H 96 12/07/19 10:17 96.3 F L 126 H 20 184/107 H 96 Date Exam was Performed: 12/07/19 Time Exam was Performed: 13:41 - Problem List (1) Cerebrovascular accident (CVA) SNOMED Code(s): 582122912 ICD Code: I63.9 - CEREBRAL INFARCTION, UNSPECIFIED Status: Suspected Current Visit: Yes (2) Tobacco abuse SNOMED Code(s): 933695509 ICD Code: Z72.0 - TOBACCO USE Status: Chronic Current Visit: Yes (3) Alcohol use SNOMED Code(s): 032392 ICD Code: Z72.89 - OTHER PROBLEMS RELATED TO LIFESTYLE Status: Chronic Current Visit: Yes (4) HTN (hypertension) SNOMED Code(s): 69953511 ICD Code: I10 - ESSENTIAL (PRIMARY) HYPERTENSION Status: Chronic Current Visit: Yes (5) Dyslipidemia SNOMED Code(s): 457783113 ICD Code: E78.5 - HYPERLIPIDEMIA, UNSPECIFIED Status: Chronic Current Visit: Yes (6) History of CVA (cerebrovascular accident) SNOMED Code(s): 653750703 ICD Code: Z86.73 - PRSNL HX OF TIA (TIA), AND CEREB INFRC W/O RESID DEFICITS Status: Chronic Current Visit: Yes Problem List Initiated/Reviewed/Updated: Yes Orders Last 24hrs: Active Orders 24 hr Category Date Time Status Admission Status [Patient Status] [ADT] Stat ADT 12/07/19 12:37 Active Assess Neurological Status [RC] ASDIRECTED Care 12/07/19 10:31 Active CIWAA Assessment [RC] Q4H Care 12/07/19 13:32 Ordered Cardiac Monitoring [RC] . DIRECTED Care 12/07/19 10:31 Inactive EKG Documentation Completion [RC] STAT Care 12/07/19 10:31 Active Initiate Acute Stroke Protocol [RC] STAT Care 12/07/19 10:31 Active Intake and Output [RC] QSHIFT Care 12/07/19 13:27 Ordered NIH Stroke Scale [RC] Q4H Care 12/07/19 13:30 Active Notify Provider Consults [RC] ASDIRECTED Care 12/07/19 13:29 Ordered Nursing Bedside Swallow Screen [RC] ASDIRECTED Care 12/07/19 10:31 Active Oxygen Therapy [RC] ASDIRECTED Care 12/07/19 10:31 Inactive Oxygen Therapy [RC] PRN Care 12/07/19 13:26 Ordered RT Aerosol Therapy [RC] ASDIRECTED Care 12/07/19 13:29 Ordered Stroke Education, General [RC] Click to Edit Care 12/07/19 10:31 Active Telemetry Monitoring [Cardiac Monitoring] [RC] . Care 12/07/19 13:33 Ordered DIRECTED Up With Assistance [RC] ASDIRECTED Care 12/07/19 13:26 Ordered VTE/DVT Education [RC] PER UNIT ROUTINE Care 12/07/19 13:26 Ordered Vital Signs [RC] Q4H Care 12/07/19 13:26 Ordered Consult to Physician [CONS] Routine Cons 12/07/19 13:26 Ordered Consult to Speech Language Pathology [CREPE MAKER Evaluation Cons 12/07/19 13:34 Ordered and Treatment] [CONS] Routine Heart Healthy Diet [DIET] Diet 12/07/19 Lunch Ordered Ang Head wo Cont [MR] Urgent Exams 12/07/19 13:20 Ordered Ang Neck w Cont [MR] Urgent Exams 12/07/19 13:20 Ordered Brain w wo Cont [MR] Urgent Exams 12/07/19 13:20 Ordered Echo Comp wo Cont [US] Urgent Exams 12/07/19 13:22 Ordered APTTMXBETA 2(IGG/M)CARD(I.. [REF] Routine Lab 12/07/19 13:29 Ordered BASIC METABOLIC PANEL,BMP [CHEM] AM Lab 12/08/19 05:11 Ordered BASIC METABOLIC PANEL,BMP [CHEM] AM Lab 12/09/19 05:11 Ordered CBC WITH AUTO DIFF [HEME] AM Lab 12/08/19 05:11 Ordered CBC WITH AUTO DIFF [HEME] AM Lab 12/09/19 05:11 Ordered GLYCOSYLATED HEMOGLOBIN,HGBA1C [CHEM] Routine Lab 12/07/19 13:23 Ordered LIPID PANEL [CHEM] AM Lab 12/08/19 05:11 Ordered MAGNESIUM [CHEM] AM Lab 12/08/19 05:11 Ordered MAGNESIUM [CHEM] AM Lab 12/09/19 05:11 Ordered PROTEIN C ANTIGEN [REF] Routine Lab 12/07/19 13:23 Ordered PROTEIN C-FUNCTIONAL [REF] Routine Lab 12/07/19 13:23 Ordered PROTEIN S-FUNCTIONAL [REF] Routine Lab 12/07/19 13:23 Ordered UA RFX GEORGE AND CULT IF INDIC [URIN] Stat Lab 12/07/19 10:31 Ordered Acetaminophen [Tylenol] Med 12/07/19 13:26 Ordered 650 mg PO Q4H PRN Albuterol [Proventil Neb Soln] Med 12/07/19 13:26 Ordered 2.5 mg NEB Q2H PRN Aspirin Med 12/08/19 09:00 Ordered 81 mg PO DAILY Enoxaparin [Lovenox] Med 12/07/19 13:30 Ordered 40 mg SUBCUT Q24H Folic Acid Med 12/07/19 21:00 Ordered 1 mg PO BEDTIME LORazepam [Ativan] Med 12/07/19 13:32 Ordered See Protocol IVPUSH Q4H PRN LORazepam [Ativan] Med 12/07/19 13:32 Ordered See Protocol PO Q4H PRN Ondansetron [Zofran] Med 12/07/19 13:26 Ordered 4 mg IVPUSH Q4H PRN Sodium Chloride 0.9% [Normal Saline] Med 12/07/19 10:31 Active 10 ml IV ASDIRECTED PRN Sodium Chloride 0.9% [Saline Flush] Med 12/07/19 10:31 Active 10 ml FLUSH ASDIRECTED PRN Sodium Chloride 0.9% [Saline Flush] Med 12/07/19 10:31 Active 2.5 ml FLUSH ASDIRECTED PRN Thiamine [Vitamin B-1] Med 12/07/19 21:00 Ordered 100 mg PO BEDTIME atorvaSTATin [Lipitor] Med 12/07/19 21:00 Ordered 80 mg PO BEDTIME Peripheral IV Insertion Adult [OM.PC] Stat Oth 12/07/19 10:31 Ordered Resuscitation Status Routine Resus Stat 12/07/19 13:26 Ordered Medication Orders Acetaminophen (Tylenol) 650 mg PO Q4H PRN PRN Reason: Pain (mild 1-3) Albuterol (Proventil Neb Soln) 2.5 mg NEB Q2H PRN PRN Reason: Shortness Of Breath/wheezing Aspirin (Aspirin) 81 mg PO DAILY ARIS Atorvastatin Calcium (Lipitor) 80 mg PO BEDTIME ARIS Enoxaparin Sodium (Lovenox) 40 mg SUBCUT Q24H ARIS Folic Acid (Folic Acid) 1 mg PO BEDTIME ARIS Lorazepam (Ativan) 0 mg PO Q4H PRN; Protocol PRN Reason: CIWAA Lorazepam (Ativan) 0 mg IVPUSH Q4H PRN; Protocol PRN Reason: CIWAA Ondansetron HCl (Zofran) 4 mg IVPUSH Q4H PRN PRN Reason: Nausea Sodium Chloride (Saline Flush) 10 ml FLUSH ASDIRECTED PRN PRN Reason: Keep Vein Open Sodium Chloride (Saline Flush) 2.5 ml FLUSH ASDIRECTED PRN PRN Reason: Keep Vein Open Sodium Chloride (Normal Saline) 10 ml IV ASDIRECTED PRN PRN Reason: IV Use Thiamine HCl (Vitamin B-1) 100 mg PO BEDTIME ARIS Assessment/Plan Comment:: This 49 year old male admitted with R sided facial droop dysarthria, suspected CVA 1. Suspected Acute CVA - Not a candidate for TPA due to timing, greater than 24 hrs since symptoms started - ASA 325 mg now. Continue ASA 81 mg daily. - Atorvastatin 80 mg daily, start tonight. - Obtain MRI brain, MRA head and neck - ECHO - Obtain A1c and Lipid panel as well as add protein C&S and antiphospholipid antibody - Monitor on telemetry, will need ZIO patch upon admit x 14 days. - Allow for permissive HTN - ST consult. PT/OT not needed at this time as no deficits noted currently. - Extensive counseling regarding tobacco cessation, no nicotine patch during admission. Patient is aware and understanding. - Neurology consult - Obtain records from [place] regarding previous stroke 2. Alcohol/tobacco use - Counseling on need to stop both. Will consult Respiratory therapy for smoking cessation and provider ND quits resource. - CIWAA assessment with Ativan protocol PRN withdrawal symptoms. - Supplement with Thiamine and folic acid. Diet: heart healthy VTE prophylaxis: Lovenox Consults: Dr Rob, Neurology CODE Status: Full Code Disposition: 2 days - Mortality Measure Prognosis:: Good
[2019-12-07 13:57] LABS: HEMOGLOBIN A1C 5.1 % (4.5-6.2)
[2019-12-07] MEDS ORDERED: Gadobenate Dimeglumine 529 MG/ML 20 ML SDV IVPUSH STA (14:45)
--- NOTE | 2019-12-07 17:08 | MR ---
MR angiogram of neck (without and with intravenous contrast) Technique: Phase contrast MR angiogram study was obtained as well as post contrast MR angiogram. Multiple MIP images were obtained. Findings: Brachiocephalic, subclavian and axillary arteries are patent. Common carotid arteries on both sides are patent. Internal carotid arteries are also felt to be patent on both sides. Right vertebral artery is dominant. Small size of the left vertebral artery is seen which is felt to cause some pseudo-narrowing within its proximal and distal portions. Impression: 1. Dominant right vertebral artery and small left vertebral artery. As mentioned above, small size of the left vertebral artery is felt to cause some artifact. 2. Other portions of the MR angiogram of the neck appear unremarkable. Diagnostic code #2 This report was dictated in [place] Standard Time
--- NOTE | 2019-12-07 17:08 | MR ---
MR angiogram of brain Technique: [id number] MR angiogram study was obtained centered to the [place] of [place] and multiple MIP images obtained. Findings: Basilar artery is patent into the posterior cerebral arteries. Carotid siphon is patent into the anterior and middle cerebral arteries. No focal stenosis is seen. No occlusion is noted. Right vertebral artery is dominant over the left vertebral artery. Impression: 1. No abnormality is identified on MR angiogram study centered to the [place] of [place]. Diagnostic code #1 This report was dictated in [place] Standard Time
[2019-12-07] MEDS ORDERED: Folic Acid 1 MG Tab PO SCH (21:00)
[2019-12-07] MEDS ORDERED: Thiamine 100 MG Tab PO SCH (21:00)
[2019-12-07] MEDS ORDERED: atorvaSTATin 40 MG Tab PO SCH (21:00)
[2019-12-08 06:08] LABS: BLOOD UREA NITROGEN,BUN 6 mg/dL (7.0-18.0); CARBON DIOXIDE,CO2 25.8 mmol/L (21.0-32.0); CHLORIDE,CL 101 mmol/L (98-107); GLUCOSE RANDOM 98 mg/dL (74-106); POTASSIUM,K 3.9 mmol/L (3.5-5.1); SODIUM,NA 136 mmol/L (136-148)
--- NOTE | 2019-12-08 08:02 | MR ---
MRI brain (without and with intravenous contrast) Technique: T1 coronal and sagittal; T2, T1, FLAIR and diffusion axial; postcontrast T1 axial, coronal and sagittal images were obtained. Comparison: No prior intracranial imaging other than MR angiogram study performed earlier on the same day. Findings: Old lacunar infarct or plaque appears to be present within the right basal ganglia. Other scattered areas of increased signal noted within the periventricular and periventricular white matter. Difficult to exclude a mass. 1 of these areas of increased signal within the periventricular white matter shows abnormal diffusion compatible with relatively acute demyelination. No other abnormal areas of diffusion are seen. No abnormal enhancement is seen. Ventricles along with basal cisterns and sulci over the convexities are mildly prominent. Chronic appearing mucosal thickening noted within the left maxillary sinus as well as mild mucosal thickening within the right maxillary sinus. Impression: 1. Areas of increased signal within the basal ganglia and periventricular white matter. Difficult to exclude MS. One plaque on the left side shows abnormal diffusion compatible with fairly acute demyelination. 2. Cystic area within the right basal ganglia most likely representing old plaque or lacunar infarct. 3. No abnormal enhancement is seen. 4. Mild generalized atrophy. 5. Chronic appearing mucosal thickening within the maxillary sinuses, worse on the left side. Diagnostic code #3 This report was dictated in [place] Standard Time
--- NOTE | 2019-12-08 08:30 | PCM.CONS ---
H&P History of Present Illness - General Date of Service: 12/08/19 Admit Problem/Dx: Admission Diagnosis/Problem Admission Diagnosis/Problem CVA - History of Present Illness Initial Comments - Free Text/Narative: 49-year-old man admitted with right facial weakness, slurred speech consistent with stroke He was at work on Dec 06 when he developed drooping of the right-sided face and slurred speech. No recent illness. No chest pain, shortness of breath, fevers, chills, nausea, vomiting, diarrhea, limb weakness, dizziness, balance problems, vision changes, headacheWhen he woke up yesterday morning at had not resolved [facility] [place] [facility]. About 5-10 years ago he had episode of right- sided weakness that lasted about a day. He was evaluated in [place] was informed that he had a small stroke. His father had a stroke and heart attack in his late 50s. He smokes 3 packs cigarettes today and drinks 12 pack beer - Related Data Allergies/Adverse Reactions: Allergies Allergy/AdvReac Type Severity Reaction Status Date / Time No Known Allergies Allergy Verified 12/07/19 17:23 Home Medications: Home Meds . [No Known Home Meds] 12/07/19 [History] Past Medical History - Past Health History Medical/Surgical History: Denies Medical/Surgical History Cardiovascular History: Reports: High Cholesterol, Hypertension. Denies: Afib, Blood Clots/VTE/DVT, CAD, MD Respiratory History: Reports: None. Denies: Asthma, COPD Gastrointestinal History: Reports: None Neurological History: Reports: CVA (6-7 years ago) Other Neuro History: pt had a stroke 4-5 years ago Psychiatric History: Reports: Addiction Endocrine/Metabolic History: Reports: None. Denies: Diabetes, Type II, Obesity/ BMI 30+ Immunologic History: Reports: None - Past Surgical History Musculoskeletal Surgical History: Reports: Other (See Below) Other Musculoskeletal Surgeries/Procedures:: Back Surgery Social & Family History - Family History Family Medical History: Unobtainable Cardiac: Reports: High Cholesterol, Hypertension Respiratory: Reports: None GI: Reports: None : Reports: None OBGYN: Reports: None Musculoskeletal: Reports: None Neurological: Reports: CVA Other Neurological Family History: pt's father Psychiatric: Reports: None Endocrine/Metabolic: Reports: None Hematologic: Reports: None Immunologic: Reports: None Dermatologic: Reports: None Oncologic: Reports: None - Tobacco Use Smoking Status *Q: Current Every Day Smoker Years of Tobacco use: 30 Packs/Tins Daily: 3 - Caffeine Use Caffeine Use: Reports: Soda - Alcohol Use Days Per Week of Alcohol Use: 7 Number of Drinks Per Day: 12 Total Drinks Per Week: 84 Date of Last Drink: 12/05/19 Time of Last Drink: 20:00 - Recreational Drug Use Recreational Drug Use: No - Living Situation & Occupation Occupation: Employed ([employer]) H&P Review of Systems - Review of Systems: Review Of Systems: Comprehensive ROS is negative, except as noted in HPI. Exam - Exam Exam: See Below - Vital Signs Vital Signs: Last Vital Signs Temp 36.4 C 12/08/19 03:49 Pulse 75 12/08/19 03:49 Resp 17 12/08/19 03:49 BP 134/83 12/08/19 03:49 Pulse Ox 97 12/08/19 03:49 Weight: 75.8 kg - Exam Physical Exam Comments:: Constitutional: No acute distress Psychiatric: Mood/Affect: normal/appropriate Neurological: Mental Status: General: Normal activity, good hygiene, appropriate appearance. Level of consciousness: Awake, alert. Orientation: Oriented to person, place, time and situation. Concentration/Attention Span: Normal. Comprehension/Praxis: Able to perform a three step command. Fund of Knowledge/memory: Adequate recent and remote recall. Language: Fluent and articulate without evidence of aphasia or dysarthria. Cranial Nerves: Pupils equally round and reactive to light. Visual house full to confrontation. Gaze conjugate, EOMI. Sensation intact and symmetric to light touch. Mild lower facial droop on right mild dysarthria. Palate elevates symmetrically. Normal shrug bilaterally. Tongue protrudes midline Motor: Normal tone in all groups. No drift. Power is 5/5 throughout proximal and distal muscles. Sensation: Sensation is intact to temp Deep tendon reflexes: Normoactive throughout. Coordination: Finger to nose , heel to gregorio are intact. Eyes: non icteric, Mouth: moist mucus membranes Cardiovascular: RRR Respiratory: clear lungs Skin: no visible rash - Patient Data Lab Results Last 24 hrs: Laboratory Results - last 24 hr 12/07/19 12/07/19 12/07/19 Range/Units 10:45 10:45 10:45 WBC 9.54 (4.0-11.0) K/uL RBC 5.19 (4.50-5.90) M/uL Hgb 18.2 H (13.0-17.0) g/dL Hct 50.7 H (38.0-50.0) % MCV 97.7 (80.0-98.0) fL MCH 35.1 H (27.0-32.0) pg MCHC 35.9 (31.0-37.0) g/dL RDW Std Deviation 47.2 (28.0-62.0) fl RDW Coeff of Alfred 13 (11.0-15.0) % Plt Count 232 (150-400) K/uL MPV 10.80 (7.40-12.00) fL Neut % (Auto) 69.0 (48.0-80.0) % Lymph % (Auto) 21.0 (16.0-40.0) % [place] % (Auto) 6.5 (0.0-15.0) % Eos % (Auto) 3.0 (0.0-7.0) % Baso % (Auto) 0.5 (0.0-1.5) % Neut # (Auto) 6.6 H (1.4-5.7) K/uL Lymph # (Auto) 2.0 (0.6-2.4) K/uL [place] # (Auto) 0.6 (0.0-0.8) K/uL Eos # (Auto) 0.3 (0.0-0.7) K/uL Baso # (Auto) 0.1 (0.0-0.1) K/uL Nucleated RBC % 0.0 /100WBC Nucleated RBCs # 0 K/uL INR 1.12 APTT 28.1 (18.6-31.3) SEC Sodium 138 (136-148) mmol/L Potassium 3.9 (3.5-5.1) mmol/L Chloride 102 (98-107) mmol/L Carbon Dioxide 25.9 (21.0-32.0) mmol/L BUN 5 L (7.0-18.0) mg/dL Creatinine 1.0 (0.8-1.3) mg/dL Est Cr Clr Drug Dosing 88.35 mL/min Estimated GFR (MDRD) > 60.0 ml/min Glucose 129 H (74-106) mg/dL Hemoglobin A1c (4.5-6.2) % Calcium 9.0 (8.5-10.1) mg/dL Magnesium (1.8-2.4) mg/dL Total Bilirubin 1.1 H (0.2-1.0) mg/dL AST 21 (15-37) IU/L ALT 20 (14-63) IU/L Alkaline Phosphatase 72 (46-116) U/L Troponin I < 0.050 (0.000-0.056) ng/mL Total Protein 7.4 (6.4-8.2) g/dL Albumin 3.4 (3.4-5.0) g/dL Globulin 4.0 (2.6-4.0) g/dL Albumin/Globulin Ratio 0.9 (0.9-1.6) Triglycerides (0-200) mg/dL Cholesterol (50-200) mg/dL LDL Cholesterol, Calc (60-180) mg/dL VLDL Cholesterol (5-55) mg/dL HDL Cholesterol (40-60) mg/dL Cholesterol/HDL Ratio (3.3-6.0) TSH 3rd Generation 1.61 (0.36-3.74) uIU/mL Urine Color Urine Appearance Urine pH (5.0-8.0) Ur Specific [place] (1.001-1.035) Urine Protein (NEGATIVE) mg/dL Urine Glucose (UA) (NEGATIVE) mg/dL Urine Ketones (NEGATIVE) mg/dL Urine Occult Blood (NEGATIVE) Urine Nitrite (NEGATIVE) Urine Bilirubin (NEGATIVE) Urine Urobilinogen (<2.0) EU/dL Ur Leukocyte Esterase (NEGATIVE) Urine RBC (0-2/HPF) Urine WBC (0-5/HPF) Ur Epithelial Cells (NONE-FEW) Urine Bacteria (NEGATIVE) Urine Mucus (NONE-MOD) 12/07/19 12/07/19 12/08/19 Range/Units 10:45 13:45 05:15 WBC 10.07 (4.0-11.0) K/uL RBC 5.08 (4.50-5.90) M/uL Hgb 17.3 H (13.0-17.0) g/dL Hct 49.2 (38.0-50.0) % MCV 96.9 (80.0-98.0) fL MCH 34.1 H (27.0-32.0) pg MCHC 35.2 (31.0-37.0) g/dL RDW Std Deviation 46.1 (28.0-62.0) fl RDW Coeff of Alfred 13 (11.0-15.0) % Plt Count 245 (150-400) K/uL MPV 10.70 (7.40-12.00) fL Neut % (Auto) 64.0 (48.0-80.0) % Lymph % (Auto) 22.9 (16.0-40.0) % [place] % (Auto) 7.3 (0.0-15.0) % Eos % (Auto) 5.1 (0.0-7.0) % Baso % (Auto) 0.7 (0.0-1.5) % Neut # (Auto) 6.4 H (1.4-5.7) K/uL Lymph # (Auto) 2.3 (0.6-2.4) K/uL [place] # (Auto) 0.7 (0.0-0.8) K/uL Eos # (Auto) 0.5 (0.0-0.7) K/uL Baso # (Auto) 0.1 (0.0-0.1) K/uL Nucleated RBC % 0.0 /100WBC Nucleated RBCs # 0 K/uL INR APTT (18.6-31.3) SEC Sodium (136-148) mmol/L Potassium (3.5-5.1) mmol/L Chloride (98-107) mmol/L Carbon Dioxide (21.0-32.0) mmol/L BUN (7.0-18.0) mg/dL Creatinine (0.8-1.3) mg/dL Est Cr Clr Drug Dosing mL/min Estimated GFR (MDRD) ml/min Glucose (74-106) mg/dL Hemoglobin A1c 5.1 (4.5-6.2) % Calcium (8.5-10.1) mg/dL Magnesium (1.8-2.4) mg/dL Total Bilirubin (0.2-1.0) mg/dL AST (15-37) IU/L ALT (14-63) IU/L Alkaline Phosphatase (46-116) U/L Troponin I (0.000-0.056) ng/mL Total Protein (6.4-8.2) g/dL Albumin (3.4-5.0) g/dL Globulin (2.6-4.0) g/dL Albumin/Globulin Ratio (0.9-1.6) Triglycerides (0-200) mg/dL Cholesterol (50-200) mg/dL LDL Cholesterol, Calc (60-180) mg/dL VLDL Cholesterol (5-55) mg/dL HDL Cholesterol (40-60) mg/dL Cholesterol/HDL Ratio (3.3-6.0) TSH 3rd Generation (0.36-3.74) uIU/mL Urine Color DARK YELLOW Urine Appearance CLEAR Urine pH 7.0 (5.0-8.0) Ur Specific [place] 1.015 (1.001-1.035) Urine Protein 100 H (NEGATIVE) mg/dL Urine Glucose (UA) NEGATIVE (NEGATIVE) mg/dL Urine Ketones NEGATIVE (NEGATIVE) mg/dL Urine Occult Blood TRACE-INTACT H (NEGATIVE) Urine Nitrite NEGATIVE (NEGATIVE) Urine Bilirubin NEGATIVE (NEGATIVE) Urine Urobilinogen 4.0 H (<2.0) EU/dL Ur Leukocyte Esterase NEGATIVE (NEGATIVE) Urine RBC 0-2 (0-2/HPF) Urine WBC 0-1 (0-5/HPF) Ur Epithelial Cells NOT SEEN (NONE-FEW) Urine Bacteria FEW (NEGATIVE) Urine Mucus MODERATE (NONE-MOD) 12/08/19 Range/Units 05:15 WBC (4.0-11.0) K/uL RBC (4.50-5.90) M/uL Hgb (13.0-17.0) g/dL Hct (38.0-50.0) % MCV (80.0-98.0) fL MCH (27.0-32.0) pg MCHC (31.0-37.0) g/dL RDW Std Deviation (28.0-62.0) fl RDW Coeff of Alfred (11.0-15.0) % Plt Count (150-400) K/uL MPV (7.40-12.00) fL Neut % (Auto) (48.0-80.0) % Lymph % (Auto) (16.0-40.0) % [place] % (Auto) (0.0-15.0) % Eos % (Auto) (0.0-7.0) % Baso % (Auto) (0.0-1.5) % Neut # (Auto) (1.4-5.7) K/uL Lymph # (Auto) (0.6-2.4) K/uL [place] # (Auto) (0.0-0.8) K/uL Eos # (Auto) (0.0-0.7) K/uL Baso # (Auto) (0.0-0.1) K/uL Nucleated RBC % /100WBC Nucleated RBCs # K/uL INR APTT (18.6-31.3) SEC Sodium 136 (136-148) mmol/L Potassium 3.9 (3.5-5.1) mmol/L Chloride 101 (98-107) mmol/L Carbon Dioxide 25.8 (21.0-32.0) mmol/L BUN 6 L (7.0-18.0) mg/dL Creatinine 0.8 (0.8-1.3) mg/dL Est Cr Clr Drug Dosing 110.44 mL/min Estimated GFR (MDRD) > 60.0 ml/min Glucose 98 (74-106) mg/dL Hemoglobin A1c (4.5-6.2) % Calcium 8.6 (8.5-10.1) mg/dL Magnesium 2.0 (1.8-2.4) mg/dL Total Bilirubin (0.2-1.0) mg/dL AST (15-37) IU/L ALT (14-63) IU/L Alkaline Phosphatase (46-116) U/L Troponin I (0.000-0.056) ng/mL Total Protein (6.4-8.2) g/dL Albumin (3.4-5.0) g/dL Globulin (2.6-4.0) g/dL Albumin/Globulin Ratio (0.9-1.6) Triglycerides 136 (0-200) mg/dL Cholesterol 184 (50-200) mg/dL LDL Cholesterol, Calc 120 (60-180) mg/dL VLDL Cholesterol 27 (5-55) mg/dL HDL Cholesterol 37 L (40-60) mg/dL Cholesterol/HDL Ratio 5.0 (3.3-6.0) TSH 3rd Generation (0.36-3.74) uIU/mL Urine Color Urine Appearance Urine pH (5.0-8.0) Ur Specific [place] (1.001-1.035) Urine Protein (NEGATIVE) mg/dL Urine Glucose (UA) (NEGATIVE) mg/dL Urine Ketones (NEGATIVE) mg/dL Urine Occult Blood (NEGATIVE) Urine Nitrite (NEGATIVE) Urine Bilirubin (NEGATIVE) Urine Urobilinogen (<2.0) EU/dL Ur Leukocyte Esterase (NEGATIVE) Urine RBC (0-2/HPF) Urine WBC (0-5/HPF) Ur Epithelial Cells (NONE-FEW) Urine Bacteria (NEGATIVE) Urine Mucus (NONE-MOD) Result Diagrams: 12/08/19 05:15 12/08/19 05:15 Imaging Impressions Last 24 hrs: MR angiogram head and neck 12/07/19 showed diminutive left vertebral artery, otherwise unremarkable. MRI brain showed area of restricted diffusion in the left hemisphere white matter consistent with acute stroke. Evidence of an old lacunar infarct noted in the right basal ganglia and multiple T2 hyperintense/ T1 hypointense foci in deep white matter Labs 12/08/19 LDL 120, A1c 5.1 Sepsis Event Note - Evaluation Sepsis Screening Result: No Definite Risk - Focused Exam Vital Signs: Vital Signs Temp Pulse Resp BP Pulse Ox 12/08/19 03:49 36.4 C 75 17 134/83 97 12/07/19 23:43 36.5 C 71 17 136/86 97 Date Exam was Performed: 12/08/19 Time Exam was Performed: 08:28 Consult PN Assessment/Plan Procedures: Procedures COMPLETE CBC AUTOMATED (05/25/16) GLYCOSYLATED HEMOGLOBIN TEST (05/25/16) LIPID PANEL (05/25/16) METABOLIC PANEL TOTAL CA (05/25/16) ROUTINE VENIPUNCTURE (05/25/16) (1) Cerebrovascular accident (CVA) SNOMED Code(s): 475783341 Code(s): I63.9 - CEREBRAL INFARCTION, UNSPECIFIED Current Visit: Yes Assessment:: Impression Acute stroke, suspected small vessel Not TPA or thrombectomy candidate due to timing of presentation Recs: ASA 81 mg Atorvastatin 80 mg Counseling for smoking cessation Echo pending Hypercoag w/u Telemetry and Zio patch Speech consult Problem List Initiated/Reviewed/Updated: Yes
[2019-12-08] MEDS ORDERED: Aspirin 81 MG Tab.Chew PO SCH (09:00)
--- NOTE | 2019-12-08 10:35 | PCM.DCSUM1 ---
Discharge Summary - Hospital Course Brief History: This 49 year old male with pmh of CVA 6-7 years ago, tobacco use , alcohol dependence and untreated HTN and dyslipidemia presented to the ED with complaints of R sided facial numbness, slurred speech and facial droop. He reports this started yesterday morning around 0830 am. He reports he was at work , suddenly had a velez of flushing, lightheadedness and dizziness and then he noticed the slurred speech and facial droop. He didn't come in right away as he thought it would go away. This morning when it wasn't gone he was concerned so he came in. Prior to yesterday he was feeling normal. No recent fevers or chills. No chest pain or palpitations. No shortness of breath cough or URI symptoms. He denies abdominal pain, urinary concerns, no bowel issues. He denies black or bloody BMs. He reports history of 3 small strokes 6-7 years ago , denies work up for this. He reports he passed out after getting out of bed then went to the hospital and was told he had had a stroke. He denies starting medications at that time. He reports hypertension and high cholesterol, but denies taking any medication for this. he denies known CAD. No DM history and no thyroid concerns. He reports family history of CVA of his father and mother in their 50s. No known clotting disorders to his knowledge. He reports he smokes 3 ppd cigarettes, drinks 12-15 beers daily. Denies seizures. No withdrawal symptoms when he doesn't drink. He denies recreational drug use. In the ED hgb 18.2, hct 50.7, BMP WNL. Bili 1.1. Glucose 129. TSH 1.61, troponin negative. EKG SR with to afib noted, HR on arrival was 125 which settled to 80s. BP on arrival 180 SBP then improved to 140-[address] revealed chronic lacunar infarct in the R basal ganglia, CXR negative. He will be admitted for suspected acute CVA. Diagnosis: Stroke: Yes Modified Garden Scale: No Signif.Disability Despite Sympt.Able to Carry Out Usual Act./Duties Modified Everett Scale Score: 1 - Discharge Data Discharge Date: 12/08/19 Discharge Disposition: Home, Self-Care 01 Condition: Good - Referral to Home Health Primary Care Physician: Pola Roa MD - Discharge Diagnosis/Problem(s) (1) Cerebrovascular accident (CVA) SNOMED Code(s): 804054795 ICD Code: I63.9 - CEREBRAL INFARCTION, UNSPECIFIED Status: Suspected Current Visit: Yes (2) Tobacco abuse SNOMED Code(s): 656953043 ICD Code: Z72.0 - TOBACCO USE Status: Chronic Current Visit: Yes (3) Alcohol use SNOMED Code(s): 933104 ICD Code: Z72.89 - OTHER PROBLEMS RELATED TO LIFESTYLE Status: Chronic Current Visit: Yes (4) HTN (hypertension) SNOMED Code(s): 43842917 ICD Code: I10 - ESSENTIAL (PRIMARY) HYPERTENSION Status: Chronic Current Visit: Yes (5) Dyslipidemia SNOMED Code(s): 510921350 ICD Code: E78.5 - HYPERLIPIDEMIA, UNSPECIFIED Status: Chronic Current Visit: Yes (6) History of CVA (cerebrovascular accident) SNOMED Code(s): 182134848 ICD Code: Z86.73 - PRSNL HX OF TIA (TIA), AND CEREB INFRC W/O RESID DEFICITS Status: Chronic Current Visit: Yes - Patient Summary/Data Consults: Consultations 12/07/19 13:26 Consult to Physician [CONS] Routine 12/07/19 13:34 Consult to Speech Language Pathology [WING COVERER Evaluation and Treatment] [CONS] Routine - Patient Instructions Diet: Heart Healthy Diet Activity: As Tolerated, No Strenuous Activities Showering/Bathing: May Shower Notify Provider of: Fever, Increased Pain, Swelling and Redness, Drainage, Nausea and/or Vomiting Other/Special Instructions: Monitor Blood Pressure at home. Return to ER if concerns for another stroke happen - Discharge Plan *PRESCRIPTION DRUG MONITORING PROGRAM REVIEWED*: Not Applicable *COPY OF PRESCRIPTION DRUG MONITORING REPORT IN PATIENT YOUSUF: Not Applicable Prescriptions/Med Rec: Aspirin 81 mg PO DAILY #30 tab.chew atorvaSTATin [Lipitor] 80 mg PO BEDTIME #60 tablet Lisinopril [Zestril] 5 mg PO DAILY #30 tablet Home Medications: Home Meds Aspirin 81 mg PO DAILY #30 tab.chew 12/08/19 [Rx] Lisinopril [Zestril] 5 mg PO DAILY #30 tablet 12/08/19 [Rx] atorvaSTATin [Lipitor] 80 mg PO BEDTIME #60 tablet 12/08/19 [Rx] Oxygen Therapy Mode: Room Air Patient Handouts: Hospital Discharge After a Stroke, Stroke Prevention, Easy-to -Read, Atorvastatin tablets, Lisinopril tablets, Aspirin, ASA oral tablets, Transient Ischemic Attack Referrals: Pola Roa MD [Primary Care Provider] - 12/20/19 2:45 pm Dominique Rob MD [Physician] - 12/21/19 10:00 am - Discharge Summary/Plan Comment DC Time >30 min.: No Discharge Summary/Plan Comment: Admitting Diagnoses: Acute CVA Discharge Diagnoses: Acute CVA HTN Dyslipidemia Other PMH: Tobacco use Alcohol use Froilan was admitted for suspected acute CVA due to dysarthria and R sided facial droop. CT negative, but did show old R sided infarct. MRA of head and neck along with MRI of brain obtained, showed diminutive left vertebral artery, otherwise unremarkable. MRI brain showed area of restricted diffusion in the left hemisphere white matter consistent with acute stroke. A1c obtained which was 5.1, LDL elevated at 120. he was started on ASA 81 mg and Atorvastatin 80 mg. Protein C&S along with antiphospholipid antibody labwork obtained and pending on discharge. He was monitored on telemetry which showed no arrhythmias , including afib. He was placed on ZIO patch today for [address] consulted, see notes, no trouble with dysphagia. PT/OT not needed as no gait instability or upper extremity weakness noted. He was counseled heavily on tobacco cessation and sobriety as well. He was no eager to stop cold turkey but did understand the gravity for need to quit. He reports he will slowly cut back. He will be sent home with Lisinopril 5 mg daily, as BP better today, 130-140 SBP. He is to monitor BP at home and follow up with PCP in 1-2 weeks. He will also follow up with Dr Rob as outpatient as well. ECHO returned after discharged which was negative, no intracardiac thrombus noted. He was encouraged to return to ED or clinic if concerns should arise. Educated on symptoms of stroke so he can seek immediate care for intervention. - General Info Date of Service: 12/08/19 Admission Dx/Problem (Free Text: Admission Diagnosis/Problem Admission Diagnosis/Problem CVA - Review of Systems Neurological: Reports: Trouble Speaking (improved), Other (R facial droop, also improved) - Patient Data Vitals - Most Recent: Last Vital Signs Temp 97.9 F 12/08/19 07:00 Pulse 70 12/08/19 07:00 Resp 16 12/08/19 07:00 BP 144/92 H 12/08/19 07:00 Pulse Ox 96 12/08/19 07:00 Weight - Most Recent: 75.8 kg I&O - Last 24 hours: Intake & Output 12/07/19 12/08/19 12/08/19 22:59 06:59 14:59 Intake Total 500 500 Output Total 800 400 Balance -300 100 Lab Results - Last 24 hrs: Laboratory Results - last 24 hr 12/07/19 12/07/19 12/07/19 Range/Units 10:45 10:45 10:45 WBC 9.54 (4.0-11.0) K/uL RBC 5.19 (4.50-5.90) M/uL Hgb 18.2 H (13.0-17.0) g/dL Hct 50.7 H (38.0-50.0) % MCV 97.7 (80.0-98.0) fL MCH 35.1 H (27.0-32.0) pg MCHC 35.9 (31.0-37.0) g/dL RDW Std Deviation 47.2 (28.0-62.0) fl RDW Coeff of Alfred 13 (11.0-15.0) % Plt Count 232 (150-400) K/uL MPV 10.80 (7.40-12.00) fL Neut % (Auto) 69.0 (48.0-80.0) % Lymph % (Auto) 21.0 (16.0-40.0) % [place] % (Auto) 6.5 (0.0-15.0) % Eos % (Auto) 3.0 (0.0-7.0) % Baso % (Auto) 0.5 (0.0-1.5) % Neut # (Auto) 6.6 H (1.4-5.7) K/uL Lymph # (Auto) 2.0 (0.6-2.4) K/uL [place] # (Auto) 0.6 (0.0-0.8) K/uL Eos # (Auto) 0.3 (0.0-0.7) K/uL Baso # (Auto) 0.1 (0.0-0.1) K/uL Nucleated RBC % 0.0 /100WBC Nucleated RBCs # 0 K/uL INR 1.12 APTT 28.1 (18.6-31.3) SEC Sodium 138 (136-148) mmol/L Potassium 3.9 (3.5-5.1) mmol/L Chloride 102 (98-107) mmol/L Carbon Dioxide 25.9 (21.0-32.0) mmol/L BUN 5 L (7.0-18.0) mg/dL Creatinine 1.0 (0.8-1.3) mg/dL Est Cr Clr Drug Dosing 88.35 mL/min Estimated GFR (MDRD) > 60.0 ml/min Glucose 129 H (74-106) mg/dL Hemoglobin A1c (4.5-6.2) % Calcium 9.0 (8.5-10.1) mg/dL Magnesium (1.8-2.4) mg/dL Total Bilirubin 1.1 H (0.2-1.0) mg/dL AST 21 (15-37) IU/L ALT 20 (14-63) IU/L Alkaline Phosphatase 72 (46-116) U/L Troponin I < 0.050 (0.000-0.056) ng/mL Total Protein 7.4 (6.4-8.2) g/dL Albumin 3.4 (3.4-5.0) g/dL Globulin 4.0 (2.6-4.0) g/dL Albumin/Globulin Ratio 0.9 (0.9-1.6) Triglycerides (0-200) mg/dL Cholesterol (50-200) mg/dL LDL Cholesterol, Calc (60-180) mg/dL VLDL Cholesterol (5-55) mg/dL HDL Cholesterol (40-60) mg/dL Cholesterol/HDL Ratio (3.3-6.0) TSH 3rd Generation 1.61 (0.36-3.74) uIU/mL Urine Color Urine Appearance Urine pH (5.0-8.0) Ur Specific [place] (1.001-1.035) Urine Protein (NEGATIVE) mg/dL Urine Glucose (UA) (NEGATIVE) mg/dL Urine Ketones (NEGATIVE) mg/dL Urine Occult Blood (NEGATIVE) Urine Nitrite (NEGATIVE) Urine Bilirubin (NEGATIVE) Urine Urobilinogen (<2.0) EU/dL Ur Leukocyte Esterase (NEGATIVE) Urine RBC (0-2/HPF) Urine WBC (0-5/HPF) Ur Epithelial Cells (NONE-FEW) Urine Bacteria (NEGATIVE) Urine Mucus (NONE-MOD) 12/07/19 12/07/19 12/08/19 Range/Units 10:45 13:45 05:15 WBC 10.07 (4.0-11.0) K/uL RBC 5.08 (4.50-5.90) M/uL Hgb 17.3 H (13.0-17.0) g/dL Hct 49.2 (38.0-50.0) % MCV 96.9 (80.0-98.0) fL MCH 34.1 H (27.0-32.0) pg MCHC 35.2 (31.0-37.0) g/dL RDW Std Deviation 46.1 (28.0-62.0) fl RDW Coeff of Alfred 13 (11.0-15.0) % Plt Count 245 (150-400) K/uL MPV 10.70 (7.40-12.00) fL Neut % (Auto) 64.0 (48.0-80.0) % Lymph % (Auto) 22.9 (16.0-40.0) % [place] % (Auto) 7.3 (0.0-15.0) % Eos % (Auto) 5.1 (0.0-7.0) % Baso % (Auto) 0.7 (0.0-1.5) % Neut # (Auto) 6.4 H (1.4-5.7) K/uL Lymph # (Auto) 2.3 (0.6-2.4) K/uL [place] # (Auto) 0.7 (0.0-0.8) K/uL Eos # (Auto) 0.5 (0.0-0.7) K/uL Baso # (Auto) 0.1 (0.0-0.1) K/uL Nucleated RBC % 0.0 /100WBC Nucleated RBCs # 0 K/uL INR APTT (18.6-31.3) SEC Sodium (136-148) mmol/L Potassium (3.5-5.1) mmol/L Chloride (98-107) mmol/L Carbon Dioxide (21.0-32.0) mmol/L BUN (7.0-18.0) mg/dL Creatinine (0.8-1.3) mg/dL Est Cr Clr Drug Dosing mL/min Estimated GFR (MDRD) ml/min Glucose (74-106) mg/dL Hemoglobin A1c 5.1 (4.5-6.2) % Calcium (8.5-10.1) mg/dL Magnesium (1.8-2.4) mg/dL Total Bilirubin (0.2-1.0) mg/dL AST (15-37) IU/L ALT (14-63) IU/L Alkaline Phosphatase (46-116) U/L Troponin I (0.000-0.056) ng/mL Total Protein (6.4-8.2) g/dL Albumin (3.4-5.0) g/dL Globulin (2.6-4.0) g/dL Albumin/Globulin Ratio (0.9-1.6) Triglycerides (0-200) mg/dL Cholesterol (50-200) mg/dL LDL Cholesterol, Calc (60-180) mg/dL VLDL Cholesterol (5-55) mg/dL HDL Cholesterol (40-60) mg/dL Cholesterol/HDL Ratio (3.3-6.0) TSH 3rd Generation (0.36-3.74) uIU/mL Urine Color DARK YELLOW Urine Appearance CLEAR Urine pH 7.0 (5.0-8.0) Ur Specific [place] 1.015 (1.001-1.035) Urine Protein 100 H (NEGATIVE) mg/dL Urine Glucose (UA) NEGATIVE (NEGATIVE) mg/dL Urine Ketones NEGATIVE (NEGATIVE) mg/dL Urine Occult Blood TRACE-INTACT H (NEGATIVE) Urine Nitrite NEGATIVE (NEGATIVE) Urine Bilirubin NEGATIVE (NEGATIVE) Urine Urobilinogen 4.0 H (<2.0) EU/dL Ur Leukocyte Esterase NEGATIVE (NEGATIVE) Urine RBC 0-2 (0-2/HPF) Urine WBC 0-1 (0-5/HPF) Ur Epithelial Cells NOT SEEN (NONE-FEW) Urine Bacteria FEW (NEGATIVE) Urine Mucus MODERATE (NONE-MOD) 12/08/19 Range/Units 05:15 WBC (4.0-11.0) K/uL RBC (4.50-5.90) M/uL Hgb (13.0-17.0) g/dL Hct (38.0-50.0) % MCV (80.0-98.0) fL MCH (27.0-32.0) pg MCHC (31.0-37.0) g/dL RDW Std Deviation (28.0-62.0) fl RDW Coeff of Alfred (11.0-15.0) % Plt Count (150-400) K/uL MPV (7.40-12.00) fL Neut % (Auto) (48.0-80.0) % Lymph % (Auto) (16.0-40.0) % [place] % (Auto) (0.0-15.0) % Eos % (Auto) (0.0-7.0) % Baso % (Auto) (0.0-1.5) % Neut # (Auto) (1.4-5.7) K/uL Lymph # (Auto) (0.6-2.4) K/uL [place] # (Auto) (0.0-0.8) K/uL Eos # (Auto) (0.0-0.7) K/uL Baso # (Auto) (0.0-0.1) K/uL Nucleated RBC % /100WBC Nucleated RBCs # K/uL INR APTT (18.6-31.3) SEC Sodium 136 (136-148) mmol/L Potassium 3.9 (3.5-5.1) mmol/L Chloride 101 (98-107) mmol/L Carbon Dioxide 25.8 (21.0-32.0) mmol/L BUN 6 L (7.0-18.0) mg/dL Creatinine 0.8 (0.8-1.3) mg/dL Est Cr Clr Drug Dosing 110.44 mL/min Estimated GFR (MDRD) > 60.0 ml/min Glucose 98 (74-106) mg/dL Hemoglobin A1c (4.5-6.2) % Calcium 8.6 (8.5-10.1) mg/dL Magnesium 2.0 (1.8-2.4) mg/dL Total Bilirubin (0.2-1.0) mg/dL AST (15-37) IU/L ALT (14-63) IU/L Alkaline Phosphatase (46-116) U/L Troponin I (0.000-0.056) ng/mL Total Protein (6.4-8.2) g/dL Albumin (3.4-5.0) g/dL Globulin (2.6-4.0) g/dL Albumin/Globulin Ratio (0.9-1.6) Triglycerides 136 (0-200) mg/dL Cholesterol 184 (50-200) mg/dL LDL Cholesterol, Calc 120 (60-180) mg/dL VLDL Cholesterol 27 (5-55) mg/dL HDL Cholesterol 37 L (40-60) mg/dL Cholesterol/HDL Ratio 5.0 (3.3-6.0) TSH 3rd Generation (0.36-3.74) uIU/mL Urine Color Urine Appearance Urine pH (5.0-8.0) Ur Specific [place] (1.001-1.035) Urine Protein (NEGATIVE) mg/dL Urine Glucose (UA) (NEGATIVE) mg/dL Urine Ketones (NEGATIVE) mg/dL Urine Occult Blood (NEGATIVE) Urine Nitrite (NEGATIVE) Urine Bilirubin (NEGATIVE) Urine Urobilinogen (<2.0) EU/dL Ur Leukocyte Esterase (NEGATIVE) Urine RBC (0-2/HPF) Urine WBC (0-5/HPF) Ur Epithelial Cells (NONE-FEW) Urine Bacteria (NEGATIVE) Urine Mucus (NONE-MOD) Med Orders - Current: Current Medications Acetaminophen (Tylenol) 650 mg PO Q4H PRN PRN Reason: Pain (mild 1-3) Albuterol (Proventil Neb Soln) 2.5 mg NEB Q2H PRN PRN Reason: Shortness Of Breath/wheezing Aspirin (Aspirin) 81 mg PO DAILY [facility] Last Admin: 12/08/19 08:56 Dose: 81 mg Atorvastatin Calcium (Lipitor) 80 mg PO BEDTIME ARIS Last Admin: 12/07/19 20:36 Dose: 80 mg Enoxaparin Sodium (Lovenox) 40 mg SUBCUT Q24H ARIS Last Admin: 12/07/19 14:34 Dose: 40 mg Folic Acid (Folic Acid) 1 mg PO BEDTIME [facility] Last Admin: 12/07/19 20:37 Dose: 1 mg Lorazepam (Ativan) 0 mg PO Q4H PRN; Protocol PRN Reason: CIWAA Lorazepam (Ativan) 0 mg IVPUSH Q4H PRN; Protocol PRN Reason: CIWAA Ondansetron HCl (Zofran) 4 mg IVPUSH Q4H PRN PRN Reason: Nausea Sodium Chloride (Saline Flush) 10 ml FLUSH ASDIRECTED PRN PRN Reason: Keep Vein Open Sodium Chloride (Saline Flush) 2.5 ml FLUSH ASDIRECTED PRN PRN Reason: Keep Vein Open Sodium Chloride (Normal Saline) 10 ml IV ASDIRECTED PRN PRN Reason: IV Use Thiamine HCl (Vitamin B-1) 100 mg PO BEDTIME ARIS Last Admin: 12/07/19 20:37 Dose: 100 mg Discontinued Medications Aspirin (Ecotrin) 325 mg PO ONETIME ONE Stop: 12/07/19 13:32 Last Admin: 12/07/19 14:35 Dose: 325 mg Gadobenate Dimeglumine (Multihance) 20 ml IVPUSH ONETIME STA Stop: 12/07/19 14:46 Last Admin: 12/07/19 14:55 Dose: 15 ml
--- NOTE | 2019-12-11 14:24 | ECHO ---
EXAM DATE: 12/07/19 PATIENT'S AGE: 49 The echocardiogram report can be seen in this patient's EMR (Electronic Medical Record) in the REPORTS section. The report has also been scanned into PACs. RUTH
== END 2019-12-08 12:00 | disposition home or self-care (01) | DRG 66 ==
LOC: MW.ED 10:10 → MW.MS 12:37
PROVIDERS: ADMIT Internal Medicine; ATTEND Internal Medicine
DX: I63.9 Cerebral infarction, unspecified (principal); I10 Essential (primary) hypertension; E78.5 Hyperlipidemia, unspecified; F17.210 Nicotine dependence, cigarettes, uncomplicated; R40.2413 Glasgow coma scale score 13-15, at hospital admission; R29.702 NIHSS score 2; R47.81 Slurred speech; R29.810 Facial weakness; R47.1 Dysarthria and anarthria; R20.0 Anesthesia of skin; Z71.6 Tobacco abuse counseling; Z79.82 Long term (current) use of aspirin; Z79.899 Other long term (current) drug therapy
CPT/HCPCS: 36415; 70450; 70450-26; 70544; 70544-26; 70549; 70549-26; 70553; 70553-26; 71045; 71045-26; 80048; 80053; 80061; 81001; 83036; 83735; 84443; 84484; 85025; 85302; 85303; 85306; 85610; 85611; 85613; 85670; 85730; 85732; 86146; 86147; 92610-GN; 93005; 93306; 99284; 99285-25; A9270-GY; A9577; J1650

== ENCOUNTER 2022-03-12 07:31 | Day surgery (SDC) | payer BC ==
[~2022-03-12 07:31] MED LIST: Lactated Ringers 1,000 ML IV SCH; Sodium Chloride 0.9% 10 ML Syringe FLUSH PRN; Sodium Chloride 0.9% 2.5 ML Syringe FLUSH PRN; Sodium Chloride 0.9% 20 ML SDV IV PRN
[2022-03-12] MEDS ORDERED: fentaNYL 100 MCG/2 ML SDV ONE (07:32)
[2022-03-12] MEDS ORDERED: Propofol 200 MG/20 ML SDV ONE ×2 (07:32→09:18)
== END 2022-03-12 09:55 | disposition home or self-care (01) ==
LOC: MW.SDS 07:31
PROVIDERS: ATTEND Surgery
DX: Z12.11 Encounter for screening for malignant neoplasm of colon (principal); D12.4 Benign neoplasm of descending colon; D12.8 Benign neoplasm of rectum; N52.9 Male erectile dysfunction, unspecified; E78.00 Pure hypercholesterolemia, unspecified; F17.210 Nicotine dependence, cigarettes, uncomplicated; Z80.0 Family history of malignant neoplasm of digestive organs; Z79.899 Other long term (current) drug therapy; Z98.890 Other specified postprocedural states; Z86.73 Personal history of transient ischemic attack (TIA), and cerebral infarction without residual deficits
CPT/HCPCS: 45385; J2704; J3010; J7120; 00812